=== PATIENT | female | born 1965 | race Caucasian/White ===

== ENCOUNTER 2019-10-27 08:16 | Outpatient (CLI) | payer BC, OTHER ==
[2019-10-27 14:05] LABS: Hemoglobin 13.2 g/dL (12.0-16.0); Mean Corpuscular HGB CONC 33.2 g/dL (32.0-36.0); Mean Corpuscular Hemoglobin 28.9 pg (27.0-31.0); Mean Corpuscular Volume 87.1 fL (78.0-98.0); Mean Platelet Volume 7.5 fL (7.4-10.4); Platelet Count 244 thou/uL (130-400); RBC Distribution Width 12.2 % (11.5-14.5); Red Blood Cell (RBC) Count 4.56 mill/uL (4.20-5.40); White Blood Cell (WBC) Count 6.7 thou/uL (4.8-10.8)
[2019-10-27 14:30] LABS: Anion Gap 12 mmol/L (10-20); BUN (Urea Nitrogen) 12 mg/dL (9.8-20.1); Calc. Creatinine Clearance 0 mL/min (70-130); Calcium 9.5 mg/dL (7.8-10.44); Carbon Dioxide 26 mmol/L (22-29); Chloride 103 mmol/L (98-107); Estimated GFR-MDRD 69; Glucose 204 mg/dL (70-105); Sodium 137 mmol/L (136-145)
[2019-10-28 12:29] LABS: SARS-CoV-2 MS2 Positive; SARS-CoV-2 N Gene Negative; SARS-CoV-2 S Gene Negative; SARS-CoV-2 by NAA Not Detected (NotDetected); SARS-CoV-2 orf1ab Negative
== END 2019-10-27 08:17 | disposition home or self-care (01) ==
LOC: LABBT 08:16
PROVIDERS: ATTEND Neurological Surgery
DX: Z01.812 Encounter for preprocedural laboratory examination (principal); Z11.59 Encounter for screening for other viral diseases; M54.12 Radiculopathy, cervical region
CPT/HCPCS: 80048; 85027; 87635; U0003

== ENCOUNTER 2019-10-27 11:30 | Inpatient (IN) | payer BC ==
[2019-10-25 11:42] VITALS: BMI 31.1
[2019-11-01] MEDS ORDERED: Fentanyl 100 MCG/2 ML VIAL ONE ×3 (06:50→11:07)
[2019-11-01] MEDS ORDERED: Sodium Chloride 0.9% 0 ML ONE (07:03)
[2019-11-01] MEDS ORDERED: Midazolam HCl 2 mg/2 ml Vial ONE (07:26)
[2019-11-01] MEDS ORDERED: PROPOFOL 200 MG/20 ML VIAL ONE (09:04)
[2019-11-01] MEDS ORDERED: Glycopyrrolate 0.2 MG/ML 5 ML SYRINGE ONE (09:04)
[2019-11-01] MEDS ORDERED: Ondansetron PF 4 MG/2 ML Vial ONE ×2 (09:04→11:07)
[2019-11-01] MEDS ORDERED: Dexamethasone 20 MG/5 ML VIAL ONE (09:04)
[2019-11-01] MEDS ORDERED: Labetalol HCl 100 MG/20 ML VIAL ONE (09:04)
[2019-11-01] MEDS ORDERED: Ketorolac Tromethamine 30 MG/ML VIAL ONE (09:04)
[2019-11-01] MEDS ORDERED: PHENYLEPHRINE-NS 100 MCG/ML 10 ML SYRINGE ONE (09:04)
[2019-11-01] MEDS ORDERED: Lidocaine 1% PF 5 ML VIAL ONE (09:04)
--- NOTE | 2019-11-01 09:12 | OP ---
DATE OF PROCEDURE: 11/01/2019 ELECTRONIC FIELD SERVICE ENGINEER: Samia Doss PA-C. PROCEDURES PERFORMED: Removal of hardware C5 through C7, expiration of spinal fusion C5 through C7. DESCRIPTION OF PROCEDURE: The patient was brought to the operating room and intubated. She was positioned supine with head in modest extension on gel-filled donut. An incision was made in the right precervical area and dissected medial to the sternocleidomastoid muscle, we identified the previous anterior cervical plate. This was removed without difficulty. The fusion was explored and seemed to be solid. The wound was then extensively irrigated and MAC hemostasis was secured and the wound was closed in anatomic layers over drain. Job ID: [id number]
[2019-11-01] MEDS ORDERED: Milk Of Magnesia 30 ML UDCUP PO PRN (14:32)
[2019-11-01] MEDS ORDERED: Promethazine HCl 25 MG/ML VIAL IM PRN (14:32)
[2019-11-01] MEDS ORDERED: diphenhydrAMINE 25 MG CAP PO PRN (14:32)
[2019-11-01] MEDS ORDERED: diphenhydrAMINE 50 MG/ML VIAL IVP PRN (14:32)
[2019-11-01] MEDS ORDERED: Acetaminophen/Codeine 30-300mg Tablet PO PRN ×2 (14:32)
[2019-11-01] MEDS ORDERED: tiZANidine HCl 4 MG TAB PO PRN (14:32)
[2019-11-01] MEDS ORDERED: Ondansetron PF 4 MG/2 ML Vial IVP PRN (14:32)
[2019-11-01] MEDS ORDERED: traMADol HCl 50 MG TAB PO PRN ×2 (14:32)
[2019-11-01] MEDS ORDERED: Morphine 4 MG/ML VIAL SLOW IVP PRN (14:32)
[2019-11-01] MEDS ORDERED: Promethazine HCl 12.5 MG SUPP PR PRN (14:32)
[2019-11-01] MEDS ORDERED: Mag-Al 1200 mg/1200 mg/30 ML UDCUP PO PRN (14:32)
[2019-11-01] MEDS ORDERED: Morphine 2 MG/ML VIAL SLOW IVP PRN (14:32)
[2019-11-01] MEDS ORDERED: Promethazine 25 MG TAB PO PRN (14:32)
[2019-11-01] MEDS: Sodium Chloride 0.9% 1,000 ML IV SCH ×2 (15:17→20:13)
[2019-11-01] MEDS ORDERED: Dextrose 5% in Water 1,000 ML IV PRN (15:40)
[2019-11-01] MEDS ORDERED: Dextrose 50% Abboject 50 ML SYRINGE SLOW IVP PRN (15:40)
[2019-11-01] MEDS ORDERED: Insulin Regular 300 UNITS/3 ML VIAL SC PRN ×2 (15:40)
[2019-11-01] MEDS: glipiZIDE 5 MG TAB PO SCH (16:09)
--- NOTE | 2019-11-01 16:56 | PDOC.HOSPP ---
- Subjective Encounter Date: 11/01/19 Encounter Time: 16:56 Subjective: Patient seen and examined for diabetes and medical management. Pain is controlled at this time. She denies any chest pain shortness of breath palpitations nausea vomiting or urinary symptoms. - Objective Vital Signs & Weight: Vital Signs (12 hours) Temp Pulse Resp BP BP Pulse Ox 11/01/19 16:10 98.3 F 83 16 128/74 98 11/01/19 14:15 97.7 F 75 18 134/76 98 Weight Weight 170 lb Additional Labs: Accuchecks 11/01/19 15:16 POC Glucose 226 H Laboratory Tests 10/27/19 10/27/19 11:15 11:15 Hgb 13.2 Hct 39.7 Sodium 137 BUN 12 Creatinine 0.85 EKG Reviewed by me: Yes (Sinus rhythm) Hospitalist ROS - Review of Systems Cardiovascular: denies: chest pain, palpitations, orthopnea, paroxysmal noc. dyspnea, edema, light headedness, other Gastrointestinal: denies: nausea, vomiting, abdominal pain, diarrhea, constipation, melena, hematochezia, other - Medication Medications: Active Medications Generic Name Dose Route Start Last Admin Trade Name Freq PRN Reason Stop Dose Admin Glipizide 5 mg 11/01/19 16:30 11/01/19 16:09 Glucotrol PO 5 mg BID-AC BIJAN Administration Sodium Chloride 1,000 mls @ 75 mls/hr 11/01/19 14:32 11/01/19 15:17 Normal Saline 0.9% IV Not Given .[id number] [facility] Insulin Human Regular 0 units 11/01/19 15:40 11/01/19 16:10 Humulin R SC 3 unit .MILD SLIDING SCALE PRN Administration Mild Correctional Scale - Exam General Appearance: NAD Heart: RRR, no gallops Respiratory: CTAB, no rales Gastrointestinal: non-tender, normal bowel sounds Extremities: no cyanosis, no clubbing Neurological: no new deficit Hosp A/P - Plan PT/OT, incentive spirometry, DVT proph w/SCDs Diabetes mellitus type 2 Hypertension Hyperlipidemia Obesity with a BMI of 31 CKD stage II Anxiety Plan: Start moderate insulin sliding scale Resume glipizide at 5 mg twice daily with meals Restart Toprol-XL and losartan Add PRN antihypertensives Incentive spirometer Counseled on DVT prophylaxis Physical therapy Thank you for this consultation. Will follow with you.
[2019-11-01] MEDS ORDERED: cloNIDine 0.1 MG TAB PO PRN (17:00)
[2019-11-01] MEDS: CEFAZOLIN 2 GM in Premix Bag 1 BAG IVPB SCH (20:14)
[2019-11-01] MEDS ORDERED: ALPRAZolam 0.25 MG TAB PO SCH (21:00)
[2019-11-02] MEDS: CEFAZOLIN 2 GM in Premix Bag 1 BAG IVPB SCH (05:51)
[2019-11-02] MEDS: glipiZIDE 5 MG TAB PO SCH (08:05)
[2019-11-02] MEDS ORDERED: Losartan 25 MG TAB PO SCH ×2 (09:00)
[2019-11-02 11:08] VITALS: BP 110/71; TEMP 98.1
[2019-11-02] MEDS ORDERED: glipiZIDE 10 MG TAB PO SCH (16:30)
--- NOTE | 2019-11-03 10:32 | DIS ---
DATE OF ADMISSION: 11/01/2019 DATE OF DISCHARGE: 11/02/2019 HOSPITAL COURSE: The patient is a 54-year-old female, recently evaluated in our office for progressive dysphagia following her C5-C7 ACDF several years ago. She was evaluated by noncontrast CT and a swallow study, which showed issues with the anterior plate. The patient underwent removal of cervical hardware on 11/01/2019. Following the surgery, she was transitioned to the Med/Surg floor, where her pain has been well controlled with p.o. medications, she is tolerating a regular diet, and she is voiding appropriately. She reports significant improvement in her swallowing function immediately postoperatively. She did have a KRIS drain placed intraoperatively with only 10 mL out over the first night. This was removed on postoperative day #1. On exam, on postoperative day #1, vital signs stable. Awake, alert, in no acute distress. Free active range of motion of all extremities. No focal motor weakness. Ambulating well in the department. We will go ahead and dismiss to home. I have discussed home care precautions. We will follow up with the patient in 2 weeks. She has been provided scripts for Tylenol No. 3 and Zanaflex. 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 Job ID: [id number]
== END 2019-11-02 13:58 | disposition home or self-care (01) | DRG 517 ==
LOC: SURG A 11-01 06:41 → SJJU 11-01 14:23
PROVIDERS: ADMIT Neurological Surgery; ATTEND Neurological Surgery
PROC: 0RP104Z Removal of Internal Fixation Device from Cervical Vertebral Joint, Open Approach (ICD-10-PCS; principal; 2019-11-01)
DX: T84.84XA Pain due to internal orthopedic prosthetic devices, implants and grafts, initial encounter (principal); M54.12 Radiculopathy, cervical region; N18.2 Chronic kidney disease, stage 2 (mild); I11.0 Hypertensive heart disease with heart failure; E78.5 Hyperlipidemia, unspecified; E11.22 Type 2 diabetes mellitus with diabetic chronic kidney disease; F41.9 Anxiety disorder, unspecified; E66.9 Obesity, unspecified; Z68.31 Body mass index [BMI] 31.0-31.9, adult; Z79.899 Other long term (current) drug therapy; Z79.84 Long term (current) use of oral hypoglycemic drugs; Z98.1 Arthrodesis status; Y83.1 Surgical operation with implant of artificial internal device as the cause of abnormal reaction of the patient, or of later complication, without mention of misadventure at the time of the procedure
CPT/HCPCS: 36416; J0690; J1100; J1815; J1885; J2250; J2405; J2704; J3010; J3490